=== PATIENT | male | born 1990 | race Caucasian/White ===

== ENCOUNTER 2019-08-18 18:45 | Emergency (ER) | payer OTHER ==
[~2019-08-18] VITALS: Ht 167.6 cm; Wt 74.8 kg
[2019-08-18 18:51] VITALS: Ht 167.6 cm; Wt 74.8 kg
[2019-08-18 21:38] VITALS: BP 127/79
== END 2019-08-18 21:38 | disposition home or self-care (01) ==
LOC: ED 18:45
DX: S90.31XA Contusion of right foot, initial encounter (principal); G47.00 Insomnia, unspecified; R51 Headache; X58.XXXA Exposure to other specified factors, initial encounter; Y93.89 Activity, other specified; Y92.89 Other specified places as the place of occurrence of the external cause; Y99.8 Other external cause status
CPT/HCPCS: Q0092

== ENCOUNTER 2020-05-06 18:12 | Emergency (ER) | payer OTHER ==
[~2020-05-06] VITALS: Ht 165.1 cm; Wt 72.6 kg
[2020-05-06 18:22] VITALS: Ht 165.1 cm; Wt 72.6 kg
[2020-05-06 21:27] VITALS: BP 128/79
== END 2020-05-06 21:27 | disposition home or self-care (01) ==
LOC: ED 18:12
DX: S92.422A Displaced fracture of distal phalanx of left great toe, initial encounter for closed fracture (principal); S92.535A Nondisplaced fracture of distal phalanx of left lesser toe(s), initial encounter for closed fracture; W22.8XXA Striking against or struck by other objects, initial encounter; Y93.89 Activity, other specified; Y92.89 Other specified places as the place of occurrence of the external cause; Y99.8 Other external cause status
CPT/HCPCS: 90715; J0690; J2001; J2270; J2405; Q0092